=== PATIENT | female | born 1960 | race Caucasian/White ===

== ENCOUNTER 2018-08-11 09:59 | Emergency (ER) | payer MEDICARE, MEDICAID ==
--- NOTE | 2018-08-11 10:25 | ED ---
Complex/Multi-Sys Presentation - History Of Current Complaint Chief Complaint: EDChestWallPain Time Seen by Provider: 08/11/18 10:11 - Allergies/Home Medications Allergies/Adverse Reactions: Allergies Allergy/AdvReac Type Severity Reaction Status Date / Time erythromycin base Allergy Itching Verified 08/11/18 10:07 Penicillins Allergy Abdominal Verified 08/11/18 10:07 Pain Sulfa (Sulfonamide Allergy Itching Verified 08/11/18 10:07 Antibiotics) PMH/Surg Hx/FS Hx/Imm Hx Infectious Disease History: No Infectious Disease History: Denies: Traveled Outside the [place] in Last 30 Days Physical Exam Vital Signs On Initial Exam: Initial Vitals Temp Pulse Resp BP Pulse Ox 97.6 F 82 18 159/119 97 08/11/18 10:01 08/11/18 10:01 08/11/18 10:01 08/11/18 10:01 08/11/18 10:01 Diagnostics - Vital Signs Vital Signs Temp Pulse Resp BP Pulse Ox 08/11/18 10:01 97.6 F 82 18 159/119 97 - Laboratory Lab Statement: Any lab studies that have been ordered have been reviewed, and results considered in the medical decision making process. Discharge - Discharge Plan Referrals: No Primary Care Phys,NOPCP [Primary Care Provider] - - Attestation Statements Document Initiated by Scribe: Yes
[2018-08-11] MEDS ORDERED: oxyCODONE/Acetamin 5/325 MG* TAB PO ONE (10:27)
--- NOTE | 2018-08-11 10:46 | ED ---
Adult Trauma - HPI Summary HPI Summary: This patient is a 57 year old F presenting to [facility] with a chief complaint of bilateral anterior rib pain after tripping and falling while at her daughters graduation this morning. Pain rated 7/10 upon triage. Pain is worsened with movement, laughing, and coughing. Patient reports recent worsened balance due a right knee replacement and a left foot injury resulting in recent falls including today. She describes tripping and falling onto outstretched arms and then hitting her head. Denies LOC. Additionally reports right knee pain and left arm pain. - History of Current Complaint Chief Complaint: EDChestWallPain Stated Complaint: FALL INJURY Time Seen by Provider: 08/11/18 10:11 Hx Obtained From: Patient ?: No Mechanism of Injury: Fall Loss of Consciousness: no loss of consciousness Onset/Duration: Started Minutes Ago Onset of Pain: Immediate, Prior to Arrival Pain Intensity: 7 Pain Scale Used: 0-10 Numeric Location: Chest, Extremities Aggravating Factor(s): Movement, Cough Associated Signs & Symptoms: Positive: Negative - Allergy/Home Medications Allergies/Adverse Reactions: Allergies Allergy/AdvReac Type Severity Reaction Status Date / Time erythromycin base Allergy Itching Verified 08/11/18 10:07 Penicillins Allergy Abdominal Verified 08/11/18 10:07 Pain Sulfa (Sulfonamide Allergy Itching Verified 08/11/18 10:07 Antibiotics) PMH/Surg Hx/FS Hx/Imm Hx Cardiovascular History: Reports: Hx Hypertension Psychiatric History: Reports: Hx Anxiety, Hx Depression - Surgical History Surgery Procedure, Year, and Place: right knee replacement Infectious Disease History: No Infectious Disease History: Denies: Traveled Outside the [place] in Last 30 Days - Family History Known Family History: Positive: Hypertension - Social History Alcohol Use: None Substance Use Type: Reports: Prescribed Smoking Status (MU): Current Every Day Smoker Review of Systems Positive: Myalgia - chest wall, right knee, left arm Negative: Syncope All Other Systems Reviewed And Are Negative: Yes Physical Exam - Summary Physical Exam Summary: Appearance: The patient is well-nourished in no acute distress and in no acute pain. Skin: The skin is warm and dry and skin color reflects adequate perfusion. There is a n abrasion to the right knee. HEENT: The head is normocephalic and atraumatic. The pupils are equal and reactive. The conjunctivae are clear and without drainage. Nares are patent and without drainage. Mouth reveals moist mucous membranes and the throat is without erythema and exudate. The external ears are intact. The ear canals are patent and without drainage. The tympanic membranes are intact. Neck: The neck is supple with full range of motion and non-tender. There are no carotid bruits. There is no neck vein distension. Respiratory: Chest is non-tender. Lungs are clear to auscultation and breath sounds are symmetrical and equal. Cardiovascular: Heart is regular rate and rhythm. There is no murmur or rub auscultated. There is no peripheral edema and pulses are symmetrical and equal. Abdomen: The abdomen is soft and non-tender. There are normal bowel sounds heard in all four quadrants and there is no organomegaly palpated. Musculoskeletal: There is no back tenderness noted. Extremities are non-tender with full range of motion. There is good capillary refill. There is no peripheral edema or calf tenderness elicited. There is tenderness on the anterior chest wall along the costal margin bilaterally and the xiphoid. Neurological: Patient is alert and oriented to person, place and time. The patient has symmetrical motor strength in all four extremities. Cranial nerves are grossly intact. Deep tendon reflexes are symmetrical and equal in all four extremities. Psychiatric: The patient has an appropriate affect and does not exhibit any anxiety or depression Triage Information Reviewed: Yes Vital Signs On Initial Exam: Initial Vitals Temp Pulse Resp BP Pulse Ox 97.6 F 82 18 159/119 97 08/11/18 10:01 08/11/18 10:01 08/11/18 10:01 08/11/18 10:01 08/11/18 10:01 Vital Signs Reviewed: Yes Diagnostics - Vital Signs Vital Signs Temp Pulse Resp BP Pulse Ox 08/11/18 10:22 76 23 140/98 98 08/11/18 10:01 97.6 F 82 18 159/119 97 - Laboratory Lab Statement: Any lab studies that have been ordered have been reviewed, and results considered in the medical decision making process. - Radiology CXR Radiology Interpretation Completed By: Radiologist Summary of Radiographic Findings: No active cardiopulmonary disease is noted. Likely old rib fractures on the. right. ED Physician has reviewed this report. - EKG 1010 Cardiac Rate: NL - 74 BPM EKG Rhythm: Sinus Rhythm Summary of EKG Findings: Normal sinus rhythm, normal ST, no ectopy, no STEMI Adult Trauma Course/Dx - Course Course Of Treatment: Ms. Wilder took a mechanical fall onto sidewalk. She scraped her knee, her left arm is a little bit sore to flex and extend and she has bilateral lower chest wall pain. She was nontoxic appears stable vital signs. She had tenderness to the bilateral anterior chest wall. She exhibited discomfort when moving around related to that area. Her left arm was unremarkable and she had some abrasions on the right knee. X-ray of the chest was unremarkable for any acute pathology although she has had old fractures. She admits that she is followed fairly frequently in the past and has fractured her ribs. She is given pain medication here and discharged in stable condition. - Diagnoses Provider Diagnoses: Strain of chest wall Discharge - Sign-Out/Discharge Documenting (check all that apply): Patient Departure - discharge Patient Received Moderate/Deep Sedation with Procedure: No - Discharge Plan Condition: Stable Disposition: HOME Prescriptions: oxyCODONE/Acetamin 5/325 MG* [Percocet 5/325 TAB*] 1 tab PO Q6H PRN #20 tab MDD 4 PRN Reason: Pain Patient Education Materials: Chest Wall Pain (ED) Referrals: No Primary Care Phys,NOPCP [Primary Care Provider] - Additional Instructions: Follow up with you primary care physician back in [place] in 2-3 days. RETURN TO THE EMERGENCY DEPARTMENT FOR CHANGING OR WORSENING SYMPTOMS. - Billing Disposition and Condition Condition: STABLE Disposition: Home - Attestation Statements Document Initiated by Jose: Yes Documenting Scribe: Nelly Novoa Provider For Whom Jose is Documenting (Include Credential): Sriram Hernandez MD Scribe Attestation: Nelly Jenkins, scribed for Sriram Hernandez MD on 08/11/18 at 1225. Scribe Documentation Reviewed: Yes Provider Attestation: The documentation as recorded by the Nelly oscar accurately reflects the service I personally performed and the decisions made by , Sriram Hernandez MD Status of Scribe Document: Viewed
[2018-08-11 12:10] VITALS: BP 130/96
== END 2018-08-11 12:06 | disposition home or self-care (01) ==
LOC: ED 09:59
DX: S29.011A Strain of muscle and tendon of front wall of thorax, initial encounter (principal); S80.211A Abrasion, right knee, initial encounter; W01.0XXA Fall on same level from slipping, tripping and stumbling without subsequent striking against object, initial encounter; Y92.480 Sidewalk as the place of occurrence of the external cause; M25.561 Pain in right knee; M79.602 Pain in left arm; Z96.651 Presence of right artificial knee joint; Z88.1 Allergy status to other antibiotic agents; Z88.0 Allergy status to penicillin; Z88.2 Allergy status to sulfonamides; F17.200 Nicotine dependence, unspecified, uncomplicated
CPT/HCPCS: 71046; 93005; 99283; A9270-GY